=== PATIENT | male | born 1980 | race Caucasian/White ===

== ENCOUNTER 2017-01-31 19:26 | Emergency (ER) | payer OTHER ==
[2017-01-31 19:31] VITALS: BP 150/78
--- NOTE | 2017-01-31 19:55 | EDM.PDOC ---
ED HPI Skin/Rash - General Chief Complaint: Skin Complaint Stated Complaint: SHINGLES Time Seen by Provider: 01/31/17 19:30 Source: Reports: Patient History Limitations: Reports: No limitations - History of Present Illness INITIAL COMMENTS - FREE TEXT/NARRATIVE: c/o pain, redness to lower right leg, noticed last night. Fevers and chills last kong. Pain with ambulation. Hx care home itching to bilateral anterior shins. Using lotion and coconut cream to areas. - Related Data Allergies Allergy/AdvReac Type Severity Reaction Status Date / Time bee venom protein (honey bee) Allergy Swelling Verified 01/31/17 19:36 Home Meds: Ambulatory Orders Medication Instructions Recorded Confirmed . [No Known Home Meds] 01/31/17 01/31/17 Past Medical History - Past Health History Medical/Surgical History: Denies Medical/Surgical History - Infectious Disease History Infectious Disease History: Reports: Chicken pox Social & Family History - Tobacco Use Smoking Status *Q: Former Smoker Used Tobacco, but Quit: Yes Month Tobacco Last Used: oct 2016 Second Hand Smoke Exposure: No - Recreational Drug Use Recreational Drug Use: No ED ROS GENERAL - Review of Systems Review Of Systems: See Below Constitutional: Reports: fever, chills HEENT: Reports: No symptoms Respiratory: Reports: No Symptoms Cardiovascular: Reports: No symptoms GI/Abdominal: Reports: No symptoms Musculoskeletal: Reports: leg pain (right lower) Skin: Reports: rash (bilateral anterio shins chronic), erythema, change in color. Denies: wound ED EXAM, SKIN/RASH Exam: See Below Exam Limited By: No limitations General Appearance: alert, moderate distress Ears: normal external exam Throat/Mouth: Normal inspection Respiratory/Chest: no respiratory distress Cardiovascular: normal peripheral pulses, regular rate, rhythm, no edema Extremities: leg pain, increased warmth, redness (redness right anterior/ medial lower extremity warmth, upper anterior bahena mild excoriation minimal ankle swelling . tender to touch and movement . 7x 5cm with greatest area of redness lower medial 3x4cm, no vesicles noted ). No: normal inspection Skin: Warm, Dry, Erythema, Increased warmth, Other (right lower leg warm red. upper anterior bahena excoriated with dry scaling. ) Characteristics: confluent. No: vesicular, bullous Associated features: warmth, tenderness, scaling. No: swelling, crusting, weeping Course - Vital Signs Last Recorded V/S: Last Vital Signs Temp 97 F 01/31/17 19:27 Pulse 67 01/31/17 19:27 Resp 18 01/31/17 19:27 BP 150/78 H 01/31/17 19:27 Pulse Ox 98 01/31/17 19:27 - Orders/Labs/Meds Orders: Active Orders 24 hr Category Date Time Status CULTURE BLOOD [BC] Stat Lab 01/31/17 19:53 Received Labs: Laboratory Tests 01/31/17 01/31/17 01/31/17 Range/Units 19:53 19:53 19:53 WBC 6.5 (5.0-10.0) 10^3/uL RBC 4.86 (4.6-6.2) 10^6/uL Hgb 13.9 L (14.0-18.0) g/dL Hct 40.4 (40.0-54.0) % MCV 83.1 (80-100) fL MCH 28.6 (27.0-34.0) pg MCHC 34.4 (33.0-35.0) g/dL Plt Count 169 (150-450) 10^3/uL Neut % (Auto) 63.8 (42.2-75.2) % Lymph % (Auto) 22.0 (20.5-50.1) % [place] % (Auto) 12.2 H (2-8) % Eos % (Auto) 1.7 (1.0-3.0) % Baso % (Auto) 0.3 (0.0-1.0) % Sodium 135 (135-145) mmol/L Potassium 3.5 L (3.6-5.0) mmol/L Chloride 103 (101-111) mmol/L Carbon Dioxide 26.0 (21.0-31.0) mmol/L Anion Gap 9.5 BUN 18 (7-18) mg/dL Creatinine 1.0 (0.6-1.3) mg/dL Est Cr Clr Drug Dosing 121.02 mL/min Estimated GFR (MDRD) > 60 BUN/Creatinine Ratio 18.00 Glucose 156 H (74-105) mg/dL Lactic Acid 1.2 (0.5-2.2) mmol/L Calcium 9.4 (8.4-10.2) mg/dl Total Bilirubin 0.7 (0.2-1.0) mg/dL AST 62 H (10-42) IU/L ALT 31 (10-60) IU/L Alkaline Phosphatase 60 (42-121) IU/L Total Protein 7.4 (6.7-8.2) g/dl Albumin 4.4 (3.2-5.5) g/dl Globulin 3.0 Albumin/Globulin Ratio 1.47 Meds: Medications Discontinued Medications Generic Name Dose Route Start Last Admin Trade Name Roseann PRN Reason Stop Dose Admin Hydrocodone Bitart/Acetaminophen 1 tab 01/31/17 20:04 01/31/17 20:08 [place] 325-10 Mg PO 01/31/17 20:05 1 tab ONETIME ONE Administration Hydrocodone Bitart/Acetaminophen Confirm 01/31/17 20:33 01/31/17 20:37 [place] 325-10 Mg Administered 01/31/17 20:34 Not Given Dose 2 tab .ROUTE .STK-MED ONE Cephalexin 500 mg 01/31/17 20:04 01/31/17 20:08 Keflex PO 01/31/17 20:05 500 mg ONETIME ONE Administration Cephalexin Confirm 01/31/17 20:33 01/31/17 20:36 Keflex Administered 01/31/17 20:34 Not Given Dose 1,000 mg .ROUTE .STK-MED ONE Trimethoprim/Sulfamethoxazole 1 tab 01/31/17 20:04 01/31/17 20:08 Septra Ds PO 01/31/17 20:05 1 tab ONETIME ONE Administration Departure - Departure Time of Disposition: 20:33 Disposition: Home, Self-Care 01 Condition: good Clinical Impression: Cellulitis of lower extremity Qualifiers: Laterality: left Qualified Code(s): L03.116 - Cellulitis of left lower limb Instructions: Cellulitis, Adult, [id number] Referrals: PCP,None [Primary Care Provider] - Forms: ED Department Discharge Additional Instructions: minimal weight bearing tomorrow, warm pack lower extremity crutches clinic follow up on , sooner if increased redness or fevers. - My Orders Last 24 Hours: My Active Orders 01/31/17 19:53 CULTURE BLOOD [BC] Stat - Assessment/Plan Last 24 Hours: My Active Orders 01/31/17 19:53 CULTURE BLOOD [BC] Stat
[2017-01-31] MEDS ORDERED: Cephalexin 500 MG Cap PO ONE ×2 (20:04→20:33)
[2017-01-31] MEDS ORDERED: Acetaminophen/HYDROcodone 325-10 MG Tab PO ONE ×2 (20:04→20:33)
[2017-01-31] MEDS ORDERED: Sulfamethoxazole/Trimethoprim 800-160 MG Tab PO ONE (20:04)
[2017-01-31 20:21] LABS: CHLORIDE,CL 103 mmol/L (101-111); SODIUM,NA 135 mmol/L (135-145)
[2017-01-31] MEDS ORDERED: Cephalexin 500 MG Cap ONE (20:33)
[2017-01-31] MEDS ORDERED: Acetaminophen/HYDROcodone 325-10 MG Tab ONE (20:33)
== END 2017-01-31 20:45 | disposition home or self-care (01) ==
LOC: DL.ED 19:26
DX: L03.115 Cellulitis of right lower limb (principal); Z91.030 Bee allergy status; Z87.891 Personal history of nicotine dependence
CPT/HCPCS: 36415; 80053; 83605; 85025; 87040; 99283; A9270

== ENCOUNTER 2023-03-25 20:53 | Emergency (ER) | payer OTHER ==
[2023-03-25] MEDS ORDERED: methylPREDNISolone Sodium Succinate 125 MG/2 ML SDV IM ONE (21:10)
[2023-03-25] MEDS ORDERED: Dexamethasone/Neomycin/Polymyxin B Ophth Susp 5 ML Bottle EYEBOTH ONE (21:13)
[2023-03-25 21:38] VITALS: BP 129/67; PULSE 77
== END 2023-03-25 21:32 | disposition home or self-care (01) ==
LOC: DL.ED 20:53
DX: H10.023 Other mucopurulent conjunctivitis, bilateral (principal); F17.210 Nicotine dependence, cigarettes, uncomplicated; Z91.030 Bee allergy status; Z86.16 Personal history of COVID-19
CPT/HCPCS: 96372; 99282; 99283; A9270-GY; J2930